=== PATIENT | male | born 1995 | race Two or more races ===

== ENCOUNTER 2022-05-26 07:02 | Emergency (ER) | payer SELFPAY ==
[~2022-05-26] VITALS: Ht 175.3 cm; Wt 72.6 kg
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
[2022-05-26] MEDS ORDERED: ONDANSETRON 4 MG TAB.RAPDIS ONE (07:26)
[2022-05-26] MEDS ORDERED: ONDANSETRON 4 MG TAB.RAPDIS PO ONE (07:30)
--- NOTE | 2022-05-26 07:31 | NUR ---
BROUGHT TO CT DEPT.
--- NOTE | 2022-05-26 07:32 | NUR ---
REPORT GIVEN TO KYLE JAVIER
[2022-05-26] MEDS ORDERED: ONDA4TAB5 PO (08:47)
[2022-05-26] MEDS ORDERED: IBUP-1957 PO (08:47)
--- NOTE | 2022-05-26 09:37 | NUR ---
Patient discharged to home in stable condition. Written and verbal after care instructions given. Patient verbalizes understanding of instruction.
[2022-05-26 09:40] VITALS: BP 136/84
== END 2022-05-26 09:41 | disposition home or self-care (01) ==
LOC: ER 07:10
DX: S06.0X0A Concussion without loss of consciousness, initial encounter (principal); W22.8XXA Striking against or struck by other objects, initial encounter; Y93.89 Activity, other specified; Y92.89 Other specified places as the place of occurrence of the external cause; Y99.8 Other external cause status
CPT/HCPCS: 99284; 72125; 70450; Q0162